=== PATIENT | male | born 1970 | race Asian ===

== ENCOUNTER 2020-10-17 15:00 | Outpatient (RCR) | payer OTHER, SELFPAY | END 2020-10-17 15:19 | disposition other institution (70) | LOC: HO.OT 15:00 | PROVIDERS: Visit Provider Physician Assistant | DX: S63.681A Other sprain of right thumb, initial encounter (principal) | CPT/HCPCS: 29130; 97035; 97110; 97140; 97165; 97760 ==

== ENCOUNTER 2021-02-15 14:30 | Outpatient (RCR) | payer OTHER, SELFPAY | END 2021-02-22 14:38 | disposition home or self-care (01) | LOC: HO.OT 14:30 | PROVIDERS: Visit Provider Orthopaedic Surgery | DX: S63.601D Unspecified sprain of right thumb, subsequent encounter (principal) | CPT/HCPCS: 29130; 97110; 97140; 97166; 97530; 97760 ==

== ENCOUNTER → 2025-03-25 10:37 | Outpatient (BNVA) | payer OTHER, SELFPAY | PROVIDERS: Visit Provider Emergency Medicine | DX: S93.401A Sprain of unspecified ligament of right ankle, initial encounter (principal); W22.8XXA Striking against or struck by other objects, initial encounter | CPT/HCPCS: 73610; 73630; 99203 ==

== ENCOUNTER → 2025-04-01 08:12 | Outpatient (BNVA) | payer OTHER, SELFPAY | PROVIDERS: Visit Provider Emergency Medicine | DX: S93.401A Sprain of unspecified ligament of right ankle, initial encounter (principal); W22.8XXA Striking against or struck by other objects, initial encounter; Z02.79 Encounter for issue of other medical certificate | CPT/HCPCS: 99213 ==